=== PATIENT | male | born 1965 | race Caucasian/White ===

== ENCOUNTER → 2023-10-05 08:47 | Outpatient (CLI) | payer OTHER, SELFPAY ==
--- NOTE | 2023-10-05 08:53 | DI.RAD.S_ITS ---
PROCEDURE: XR SHOULDER LT MIN 2V INDICATIONS: CERVICAL RADICULOPATHY, LEFT SHOULDER PAIN TECHNIQUE: 4 views of the shoulder were acquired. COMPARISON: None. FINDINGS: Bones: No fractures or dislocations. No suspicious bony lesions. Visualized ribs appear intact. Moderate AC joint degenerative changes Soft tissues: No suspicious soft tissue calcifications. IMPRESSION: Moderate AC degenerative changes. No fracture. Approved by: Robert Mckenna M.D. on 10/05/2023 at 18:03
--- NOTE | 2023-10-05 08:53 | DI.RAD.S_ITS ---
PROCEDURE: XR CERVICAL SPINE 4V OR 5V INDICATIONS: CERVICAL RADICULOPATHY, LEFT SHOULDER PAIN TECHNIQUE: 4 views of the cervical spine were acquired. COMPARISON: None. FINDINGS: Bones: No fractures or dislocations to the T1 level. No suspicious bony lesions. There is normal range of motion between flexion and extension, with preserved normal bony alignment. Hypertrophic facet joints this results in at least moderate left C5-6 foraminal stenosis Soft tissues: Prevertebral soft tissues are normal in thickness. 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 on 10/05/2023 at 18:06
== END ==
PROVIDERS: PCP Family Medicine; Referring Provider Family Medicine; Visit Provider Family Medicine
DX: M47.22 Other spondylosis with radiculopathy, cervical region (principal); M48.02 Spinal stenosis, cervical region; M25.512 Pain in left shoulder
CPT/HCPCS: 72050; 73030